=== PATIENT | male | born 1960 | race Caucasian/White ===

== ENCOUNTER 2017-11-09 13:18 | Emergency (ER) | payer OTHER ==
[~2017-11-09] VITALS: Ht 175.3 cm; Wt 95.3 kg
[2017-11-09 13:52] VITALS: BP_SYST 157
[2017-11-09 17:35] VITALS: BP_SYST 123
== END 2017-11-09 17:34 | disposition home or self-care (01) ==
LOC: SED 13:18
DX: S89.92XA Unspecified injury of left lower leg, initial encounter (principal); I10 Essential (primary) hypertension; E78.5 Hyperlipidemia, unspecified; V87.8XXA Person injured in other specified noncollision transport accidents involving motor vehicle (traffic), initial encounter; Y93.55 Activity, bike riding; Y92.488 Other paved roadways as the place of occurrence of the external cause; Y99.8 Other external cause status
CPT/HCPCS: 73560-TC; 99284